=== PATIENT | male | born 1955 | race Caucasian/White ===

== ENCOUNTER → 2017-03-17 | Day surgery (SDC) | payer BC ==
[~2017-03-17] MED LIST: AMLODIPINE BESY10 MG PO; DECARA25000 UNIT PO; FENTANYL CITRATE/PF 100MCG/2 ML INJ ONE; HYOSCYAMINE SULFATE 0.5 MG/ML AMP ONE; LIDOCAINE HCL 2% LOCAL INJ 5 ML SDV VIAL INJ ONE; LOSARTAN-HCTZ1 EAC1 PO; LOSARTAN-HCTZ1 EAC2 PO; METFORMIN HCL500 MG PO; METOCLOPRAMIDE HCL 10 MG/2ML VIAL ONE; MIDAZOLAM HCL 2 MG/2 ML VIAL ONE; NEXIUM20 MG PO; PANTOPRAZOLE 40 MG 10ML VIAL ONE; PHENYLEPHRINE HCL 1% 10 MG/ML VIAL ONE; PROPOFOL IV EMULSION 10 MG/ML 50 ML VIAL ONE; VITAMIN E400 UNIT PO
--- NOTE | 2017-03-17 11:23 | Operative Report ---
DATE OF PROCEDURE: March 17, 2017 REFERRING PHYSICIAN: Dr. Stewart Banerjee PROCEDURES PERFORMED 1. Esophagogastroduodenoscopy with biopsies. 2. Colonoscopy with polypectomy. INDICATIONS FOR EGD: Dysphagia. INDICATIONS FOR COLONOSCOPY: Colorectal cancer screening and personal history of colon polyps. MEDICATION: Patient was done under MAC. Please see anesthesiologist's note. PROCEDURE: With the patient in the left lateral decubitus position, the flexible fiberoptic Olympus gastroscope was introduced into the esophagus under direct visualization without any difficulty. It was advanced all the way to the GE junction. An ulcerated raised lesion was noted to extend approximately 5 cm from the GE junction. A segment of velvety red mucosa was noted to extend approximately 10 cm from the GE junction. Multiple biopsies were obtained from the ulcerated nodular area. The scope was then advanced with ease into the stomach traversing an approximately 4 cm size hiatal hernia. Mucosa overlying the antrum and the body revealed some diffuse erythema and low-grade to moderate edema, and biopsies were obtained and sent to stain for H. pylori. Pylorus appeared to be of normal contour and shape. It was intubated with ease. The scope was advanced all the way to the 2nd portion of the duodenum. The scope was then withdrawn slowly. Mucosa overlying the proximal 2nd portion and the duodenal bulb appeared to be within normal limits. The scope was then withdrawn back into the stomach and retroflexed. The mucosa overlying the fundus and cardia appeared to be within normal limits. The scope was then straightened out. The stomach was decompressed. The scope was subsequently withdrawn. Esophagus was then dilated to a size 52-[place] Kruger. Patient tolerated the procedure well. IMPRESSION 1. Harris's segment extending 10 cm proximal to the gastroesophageal junction. 2. Ulcerated nodular raised area extending approximately 5 cm proximally from the gastroesophageal junction. Multiple biopsies were obtained. 3. Esophagus dilated to a size 52-[place] Kruger. 4. An approximately 4 cm hiatal hernia. 5. Gastritis, biopsied. Biopsies sent to stain for Helicobacter pylori. PLAN: Follow up histology. Increase Nexium to 40 mg [address] of chest and abdomen. Patient was then turned around. After adequate lubrication of the anal canal, a flexible fiberoptic Olympus colonoscope was inserted into the rectum with ease and advanced all the way to the cecum. The scope was then withdrawn slowly. Mucosa overlying the cecum appeared to be within normal limits. One polyp was snared from the proximal ascending colon. Diverticulosis was noted also in the ascending colon. The transverse and descending grossly appeared to be within normal limits. Diverticulosis was noted to involve the sigmoid. One polyp was snared from the sigmoid and 1 polyp was hot biopsied from the rectum. The scope was then retroflexed into the distal rectum, and small internal hemorrhoids were noted, none of which was actively bleeding. The scope was then straightened out. The rectosigmoid area, as well as the distal rectal area were decompressed. The scope was subsequently withdrawn. Patient tolerated the procedure well. IMPRESSION 1. Ascending colon polyps, snared. 2. Diverticulosis, ascending colon and sigmoid colon. 3. Sigmoid colon polyp, snared. 4. Rectal polyp, hot biopsied. 5. Internal hemorrhoids, none actively bleeding. PLAN: Follow up histology. Initiate high-fiber and low-fat diet. Initiate high-fiber supplement. Patient will need a followup colonoscopy in 3 years. Job#: [id number] [place] cc:STEWART BANERJEE DO
[2017-03-17 11:41] LABS: BLOOD UREA NITROGEN 16 mg/dL (7-26); BUN/CREATININE RATIO 13 (6-25); CALCIUM 9.8 mg/dL (8.4-10.2); CARBON DIOXIDE 28 mmol/L (22-29); CHLORIDE 100 mmol/L (98-107); CREATININE, SERUM 1.19 mg/dL (0.72-1.25); EST GLOMERULAR FILTRATION RATE > 60 ML/MIN (60-); GLUCOSE 122 mg/dL (74-118); SODIUM 140 mmol/L (136-145)
== END | disposition home or self-care (01) ==
LOC: OR 06:42
PROVIDERS: ATTEND Internal Medicine Gastroenterology
DX: C15.9 Malignant neoplasm of esophagus, unspecified (principal); D12.2 Benign neoplasm of ascending colon; D12.5 Benign neoplasm of sigmoid colon; K62.1 Rectal polyp; K22.70 Barrett's esophagus without dysplasia; K29.70 Gastritis, unspecified, without bleeding; K44.9 Diaphragmatic hernia without obstruction or gangrene; K21.9 Gastro-esophageal reflux disease without esophagitis; K57.30 Diverticulosis of large intestine without perforation or abscess without bleeding; K64.8 Other hemorrhoids; I10 Essential (primary) hypertension; E78.5 Hyperlipidemia, unspecified; E11.9 Type 2 diabetes mellitus without complications; R94.5 Abnormal results of liver function studies; B19.20 Unspecified viral hepatitis C without hepatic coma; Z01.810 Encounter for preprocedural cardiovascular examination; Z68.33 Body mass index [BMI] 33.0-33.9, adult; Z86.59 Personal history of other mental and behavioral disorders
CPT/HCPCS: 36415; 43239; 43450; 45384; 45385; 80048; 82948; 93005; J1980; J2001; J2250; J2370; J2765; G0121

== ENCOUNTER → 2017-03-18 | Outpatient (CLI) | payer BC ==
[~2017-03-18] MED LIST changes: -FENTANYL CITRATE/PF 100MCG/2 ML INJ ONE; -HYOSCYAMINE SULFATE 0.5 MG/ML AMP ONE; +IOPAMIDOL 370 MG/ML 200 ML INFUS..BTL INJ ONE; -LIDOCAINE HCL 2% LOCAL INJ 5 ML SDV VIAL INJ ONE; -METOCLOPRAMIDE HCL 10 MG/2ML VIAL ONE; -MIDAZOLAM HCL 2 MG/2 ML VIAL ONE; -PANTOPRAZOLE 40 MG 10ML VIAL ONE; -PHENYLEPHRINE HCL 1% 10 MG/ML VIAL ONE; -PROPOFOL IV EMULSION 10 MG/ML 50 ML VIAL ONE; +SODIUM CHLORIDE 0.9% 50ML 50 ML ONE
--- NOTE | 2017-03-18 09:07 | Diagnostic Imaging Report ---
PROCEDURE: CT scan of the chest WITH intravenous contrast, using standard protocol. TECHNIQUE: The chest was scanned utilizing a multidetector helical scanner from the lung apex through the level of the adrenal glands after the IV administration of 100 cc of Isovue 370. Coronal and sagittal multiplanar reformations were obtained. COMPARISON: None. INDICATIONS: ABNORMAL EGD FINDINGS: Lines/tubes: None. Lungs and Airways: The lungs and airways are normal with no focal abnormality demonstrated. Pleura: The pleural spaces are clear. Bibasilar atelectasis. Heart and mediastinum: The thyroid gland is normal. No significant mediastinal, hilar or axillary lymphadenopathy is seen. The heart and pericardium are within normal limits. Soft tissues: 1.7 cm density is present adjacent to the distal esophagus at the approximate region of the gastroesophageal junction, series 301 image 76 and series 2 image 51. Asymmetric density is present in the distal esophagus, series 2 image 52. Bones: The visualized bony thorax is within normal limits. Degenerative changes of the thoracic spine. IMPRESSION: Asymmetric density in the esophagus may represent a malignancy. 1.7 cm density adjacent to the esophagus may represent a prominent lymph node. Correlate with EGD results. No mediastinal lymphadenopathy. Dictated by: Julio Cesar Hall M.D. on 03/18/2017 at 9:16 Electronically approved by: Julio Cesar Hall M.D. on 03/18/2017 at 9:16
--- NOTE | 2017-03-18 09:19 | Diagnostic Imaging Report ---
PROCEDURE: CT ABDOMEN WITH CONTRAST TECHNIQUE: The abdomen was scanned utilizing a multidetector helical scanner from the diaphragm to the iliac crest after the IV administration of 100 cc of Isovue 370. No oral contrast was administered. Coronal and sagittal multiplanar reformations were obtained. COMPARISON: None. INDICATIONS: ABNORMAL EGD FINDINGS: HEPATOBILIARY: No focal hepatic lesions. No biliary ductal dilatation. Cholelithiasis. SPLEEN: No splenomegaly. PANCREAS: No focal masses or ductal dilatation. ADRENALS: Fat-containing left adrenal nodule, series 2 image 73. No right adrenal nodule. KIDNEYS: No hydronephrosis, stones, or solid mass lesions. PERITONEUM / RETROPERITONEUM: No free air or fluid. LYMPH NODES: No lymphadenopathy. VESSELS: Unremarkable. GI TRACT: Asymmetric density in the distal esophagus. Please see the CT of the chest. Visualized portions of the bowel demonstrate no distention or wall thickening. BONES AND SOFT TISSUES: Unremarkable. Degenerative changes of the lumbar spine. IMPRESSION: Cholelithiasis. Please see the CT of the chest for discussion of the esophageal lesion. Dictated by: Julio Cesar Hall M.D. on 03/18/2017 at 9:28 Electronically approved by: Julio Cesar Hall M.D. on 03/18/2017 at 9:28
== END ==
LOC: CT 06:24
PROVIDERS: ATTEND Internal Medicine Gastroenterology
DX: K80.20 Calculus of gallbladder without cholecystitis without obstruction (principal)
CPT/HCPCS: 71260; 74160; Q9967

== ENCOUNTER → 2017-05-26 | Day surgery (SDC) | payer BC ==
[~2017-05-26] VITALS: Ht 180.3 cm; Wt 106.6 kg
[~2017-05-26] MED LIST changes: +FENTANYL CITRATE/PF 100MCG/2 ML INJ ONE; +HEPARIN SOD (PORCINE) 1000 UNIT/ML 30ML ONE; -IOPAMIDOL 370 MG/ML 200 ML INFUS..BTL INJ ONE; +LIDOCAINE HCL 2% LOCAL 20 ML VIAL ONE; +MIDAZOLAM HCL 2 MG/2 ML VIAL ONE; +PANTOPRAZOLE SO40 MG PO; +SODIUM CHLORIDE 0.9% 500ML 1,000 ML ONE; -SODIUM CHLORIDE 0.9% 50ML 50 ML ONE
--- OUTSIDE RECORDS SUMMARY | 2017-05-26 07:45 | XMS REPORT | Clinical Summary ---
Author Author ESTHELA [facility] Address Unknown Phone Unavailable Care Team Providers Care Plate Fitter Name Role Phone PCP Unavailable Allergies No Known Allergies Current Medications Prescription Sig. Disp. Refills Start End Date Status Date metFORMIN (GLUCOPHAGE) Take 500 mg by mouth 2 Active 500 MG tablet (two) times daily with breakfast and dinner. losartan-hydroCHLOROthiaz Take 1 tablet by mouth Active robbin (HYZAAR) 100-25 mg daily. per tablet amLODIPine (NORVASC) 10 Take 10 mg by mouth Active MG tablet daily. omeprazole (PRILOSEC) 40 Take 40 mg by mouth Active MG capsule daily. vitamin E 1000 UNIT Take 1,000 Units by mouth Active capsule daily. b complex vitamins Take 1 capsule by mouth Active capsule daily. Active Problems Not on file Encounters Date Type Specialty Care Team Description 05/12/2017 [facility] Mando Bell MD Encounter 05/12/2017 Anesthesia Zoran Fuentes Event MD Gil 05/12/2017 Procedure Pass 05/12/2017 Surgery Mando Bell MD UPPER ENDOSCOPY,FNA W/ULTRASOUND 05/09/2017 Hospital Pre-Admission Testing Encounter after 05/25/2016 Social History Tobacco Use Types Packs/Day Years Used Date Former Smoker Quit: 05/12/1976 Smokeless Tobacco: Former User Alcohol Use Drinks/Week oz/Week Comments Yes 7 Shots of 4.2 liquor Sex Assigned at Date Recorded Not on file Last Filed Vital Signs Vital Sign Reading Time Taken Blood Pressure 120/86 05/12/2017 11:00 AM CDT Pulse 55 05/12/2017 11:00 AM CDT Temperature 36.4 C (97.6 F) 05/12/2017 11:33 AM CDT Respiratory Rate 16 05/12/2017 11:33 AM CDT Oxygen Saturation 92% 05/12/2017 11:33 AM CDT Inhaled Oxygen - - Concentration Weight 105.2 kg (232 lb) 05/12/2017 11:00 AM CDT Height 180.3 cm (5' 11") 05/12/2017 11:00 AM CDT Body Mass Index 32.36 05/12/2017 11:00 AM CDT Plan of Treatment Not on file Procedures Procedure Name Priority Date/Time Associated Diagnosis Comments UPPER ENDOSCOPY,FNA 05/12/2017 Esophageal mass W/ULTRASOUND 11:00 AM CDT Special Needs (LINEAR SCOPE) after 05/25/2016 Results * REPORT OF PROCEDURE - ENDOSCOPY URL (05/13/2017 10:17 AM) * POC-Glucose meter (05/12/2017 10:54 AM) Component Value Ref Range POC-Glucose Meter 98Comment: TESTED AT [facility] [address] [facility] A 70 - 110 mg/dL [facility] [address] Specimen Performing Laboratory Blood [facility] [address] [address] after 05/25/2016
--- OUTSIDE RECORDS SUMMARY | 2017-05-26 07:45 | XMS REPORT ---
Author Author [facility] Address Unknown Phone Unavailable Care Team Providers Care Chipper Operator Name Role Phone TANIKA MAC Unavailable Unavailable ABDON FRANKS Unavailable Unavailable Problems This patient has no known problems. Allergies, Adverse Reactions, Alerts This patient has no known allergies or adverse reactions. Medications This patient has no known medications. Results Test Description Test Time Test Comments Text Results Atomic Results Result Comments POCT-GLUCOSE METER 2017-05-12 11:04:00 POC-GLUCOSE METER ([facility]Know[facility]) (test sgtn=6706) 98 mg/dL 70-110 TESTED AT [facility] [address] [facility] [address] [place] [address] Patient Name: ROCK ROSA MR #: [id number] : 1955 Age/Sex: 61/M Req #: [id number] [facility] Physician: Ordered by: ABODN FRANKS MD Report #: [id number] Location: CT Room/Bed: Procedure: [id number] CT/ CT CHEST W Exam Date: 03/18/17 Exam Time: 0755 REPORT STATUS: Signed PROCEDURE: CT scan of the chest WITH intravenous contrast, using standard protocol. TECHNIQUE: The chest was scanned utilizing a multidetector helical scanner from the lung apex through the level of the adrenal glands after the IV administration of 100 cc of Isovue 370. Coronal and sagittal multiplanar reformations were obtained. COMPARISON: None. INDICATIONS: ABNORMAL EGD FINDINGS: Lines/tubes : None. Lungs and Airways: The lungs and airways are normal with no focal abnormality demonstrated. Pleura: The pleural spaces are clear. Bibasilar atelectasis. Heart and mediastinum: The thyroid gland is normal. No significant mediastinal, hilar or axillary lymphadenopathy is seen. The heart and pericardium are within normal limits. Soft tissues : 1.7 cm density is present adjacent to the distal esophagus at the approximate region of the gastroesophageal junction, series 301 image 76 and series 2 image 51. Asymmetric density is present in the distal esophagus, series 2 image 52. Bones: The visualized bony thorax is within normal limits. Degenerative changes of the thoracic spine. IMPRESSION: Asymmetric density in the esophagus may represent a malignancy. 1.7 cm density adjacent to the esophagus may represent a prominent lymph node. Correlate with EGD results. No mediastinal lymphadenopathy. Dictated by: Jermaine Rapp M.D. on 03/18/2017 at 9:16 Electronically approved by: Jermaine Rapp M.D. on 03/18/2017 at 9:16 Dictated By: JERMAINE RAPP MD 5 Transcribed By: CHANNING on 03/18/17915 COPY TO: ABDON FRANKS MD CT ABDOMEN [address] [place] [address] Patient Name: ROCK ROSA MR #: [id number] : 1955 Age/Sex: 61/M Req #: [id number] Adm Physician: Ordered by: ABDON FRANKS MD Report #: [id number] Location: CT Room/Bed: Procedure: [id number] CT/CT ABDOMEN W Exam Date: 03/18/17 Exam Time: 0755 REPORT STATUS: Signed PROCEDURE: CT ABDOMEN WITH CONTRAST TECHNIQUE: The abdomen was scanned utilizing a multidetector helical scanner from the diaphragm to the iliac crest after the IV administration of 100 cc of Isovue 370. No oral contrast was administered. Coronal and sagittal multiplanar reformations were obtained. COMPARISON: None. INDICATIONS: ABNORMAL EGD FINDINGS: HEPATOBILIARY: No focal hepatic lesions. No biliary ductal dilatation. Cholelithiasis. SPLEEN: No splenomegaly. PANCREAS: No focal masses or ductal dilatation. ADRENALS: Fat-containing left adrenal nodule, series 2 image 73. No right adrenal nodule. KIDNEYS: No hydronephrosis, stones, or solid mass lesions. PERITONEUM / RETROPERITONEUM: No free air or fluid. LYMPH NODES: No lymphadenopathy. VESSELS: Unremarkable. GI TRACT: Asymmetric density in the distal esophagus. Please see the CT of the chest. Visualized portions of the bowel demonstrate no distention or wall thickening. BONES AND SOFT TISSUES: Unremarkable. Degenerative changes of the lumbar spine. IMPRESSION: Cholelithiasis. Please see the CT of the chest for discussion of the esophageal lesion. Dictated by: Jermaine Rapp M.D. on 03/18/2017 at 9: 28 Electronically approved by: Jermaine Rapp M.D. on 03/18/2017 at 9:28 Dictated By: JERMAINE RAPP MD 7 Transcribed By: CHANNING on 03/18/17927 COPY TO : ABDON FRANKS MD
[2017-05-26 08:40] VITALS: BP 121/87
[2017-05-26 10:48] VITALS: BP 129/88
--- NOTE | 2017-05-29 13:55 | Diagnostic Imaging Report ---
PROCEDURE:TUNNEL CENTRAL CATH WITH PORT COMPARISON:None. INDICATIONS:Cancer. FINDINGS:The patient was placed supine on the angiography table. The right neck and upper chest were prepped and draped in usual sterile fashion. 1% lidocaine was infused into the subcutaneous tissues for local anesthesia. Utilizing direct sonographic guidance, the right internal jugular vein was accessed with a 21 gauge needle. A 0.018 inch wire was advanced centrally and utilizing fluoroscopic guidance. An access sheath was advanced over the wire to secure the vascular access. The wire was upsized to a 0.035 inch wire. 1% lidocaine was infused into the subcutaneous tissues along the right upper chest wall. A skin incision was made with a #11 blade. Blunt dissection was utilized to create the pocket. The catheter was tunneled through the skin and out the venous access site. A single dilation was performed over the wire. A peel-away sheath was advanced over the wire. The wire and stylet were removed. The catheter was placed within the peel-away sheath. The peel-away sheath was removed. The catheter tip was positioned within the right atrium. The catheter demonstrated proper function of aspiration and flush of sterile saline. The catheter was flushed with sterile saline. The catheter was attached to the port. The port demonstrated proper function with aspiration and flushing of sterile saline. No leak was visualized. The catheter was flushed with sterile saline. The port was placed within the pocket. The pocket was flushed with sterile saline. The deep layers of the pocket were closed with interrupted 4-0 Vicryl sutures. The superficial layers were closed with a subcuticular running 4-0 Vicryl suture. The access site was closed with Dermabond. Steri-Strips were placed over the wound. Sterile dressings were applied. The patient tolerated the procedure well. There were no immediate complications. The patient was transferred to the post procedure area in stable unchanged condition for further monitoring. CONCLUSION:Successful placement of a right internal jugular tunneled chest port utilizing ultrasound and fluoroscopic guidance. Dictated by: Julio Cesar Hall M.D. on 05/29/2017 at 13:56 Electronically approved by: Julio Cesar Hall M.D. on 05/29/2017 at 13:56
== END | disposition home or self-care (01) ==
LOC: CATH LAB 05-23 08:48
PROVIDERS: ATTEND Radiology Diagnostic Radiology
DX: C15.9 Malignant neoplasm of esophagus, unspecified (principal); I10 Essential (primary) hypertension; Z86.19 Personal history of other infectious and parasitic diseases
CPT/HCPCS: 36561 ×2; 77001; C1769; C1788; J1644; J2001; J2250; J7040